=== PATIENT | female | born 1945 | race Caucasian/White ===

== ENCOUNTER 2025-03-29 18:49 | Emergency (ER) | payer MEDICARE ==
[~2025-03-29] VITALS: Ht 160 cm; Wt 52.2 kg
[~2025-03-29 18:49] MED LIST: CARAFATE1 G1; Z.0.CYMBALTA30 MG; Z.0.PRILOSEC40 MG
[2025-03-29 19:27] VITALS: TEMP 97.6
[2025-03-29 19:40] VITALS: PULSE 77; RESP 16
[2025-03-30 00:34] VITALS: BP 160/96; PULSE 67; RESP 17; TEMP 98.2; O2SAT 93
== END 2025-03-30 00:48 ==
LOC: ER 18:57
DX: S00.83XA Contusion of other part of head, initial encounter (principal); W18.39XA Other fall on same level, initial encounter; Y92.89 Other specified places as the place of occurrence of the external cause; I10 Essential (primary) hypertension; J44.9 Chronic obstructive pulmonary disease, unspecified; I50.9 Heart failure, unspecified; G40.909 Epilepsy, unspecified, not intractable, without status epilepticus; F25.9 Schizoaffective disorder, unspecified
CPT/HCPCS: 70450; 72125; 99284